=== PATIENT | male | born 1985 | race American Indian/Alaskan Native ===

== ENCOUNTER 2020-04-07 10:55 | Emergency (ER) | payer SELFPAY ==
[2020-04-07 11:32] VITALS: BP 121/69
[2020-04-07] MEDS ORDERED: TETRACAINE 0.5% OPHTH SOLN 4ML OU ONE (15:11)
[2020-04-07] MEDS ORDERED: BALANCED SALT IRRIG (BSS) OPHTH SOLN 15 ML OU ONE (15:11)
[2020-04-07] MEDS ORDERED: FLUORESCEIN 1 MG STRIP OP ONE (15:11)
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
== END 2020-04-07 15:33 | disposition home or self-care (01) ==
LOC: ED 10:55
DX: S05.92XA Unspecified injury of left eye and orbit, initial encounter (principal); F17.200 Nicotine dependence, unspecified, uncomplicated; F12.90 Cannabis use, unspecified, uncomplicated; Z98.890 Other specified postprocedural states; X58.XXXA Exposure to other specified factors, initial encounter; Y93.89 Activity, other specified; Y92.89 Other specified places as the place of occurrence of the external cause; Y99.8 Other external cause status

== ENCOUNTER 2021-04-15 10:06 | Emergency (ER) | payer SELFPAY ==
[2021-04-15 11:50] VITALS: BP 120/59
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
== END 2021-04-15 13:31 | disposition home or self-care (01) ==
LOC: ED 10:06
DX: M54.2 Cervicalgia (principal); M54.6 Pain in thoracic spine; M25.531 Pain in right wrist; V49.49XA Driver injured in collision with other motor vehicles in traffic accident, initial encounter; Y93.89 Activity, other specified; Y92.89 Other specified places as the place of occurrence of the external cause; Y99.8 Other external cause status
CPT/HCPCS: 72040; 72070; 99283